=== PATIENT | male | born 1975 | race Caucasian/White ===

== ENCOUNTER 2020-08-19 10:41 | Emergency (ER) | payer BC ==
[~2020-08-19] VITALS: Ht 175.3 cm; Wt 77.4 kg
[2020-08-19 11:43] LABS: BASOPHILS % (AUTO) 0.3 % (0-1); EOSINOPHILS % (AUTO) 0.5 % (0-6); HEMATOCRIT 46.6 % (42.0-52.0); HEMOGLOBIN 15.7 g/dl (14.0-17.9); LYMPHOCYTES # (AUTO) 1.1 X10'3 (1.1-4.8); LYMPHOCYTES % (AUTO) 19.7 % (21-51); MEAN CORPUSCULAR HEMOGLOBIN 31.5 PG (27.0-31.0); MEAN CORPUSCULAR HGB CONC 33.8 g/dL (33.0-36.5); MEAN CORPUSCULAR VOLUME 93.4 FL (78-98); MEAN PLATELET VOLUME 6.8 FL (7.4-10.4); MONOCYTES # (AUTO) 0.5 X10'3 (0-0.9); MONOCYTES % (AUTO) 9.6 % (2-12); NEUTROPHILS # (AUTO) 3.9 X10'3 (1.8-7.7); NEUTROPHILS % (AUTO) 69.9 % (42-75); PLATELET COUNT 250 X10'3 (140-440); RED BLOOD COUNT 4.99 X10'6 (4.70-6.10); WHITE BLOOD COUNT 5.6 X10'3 (4.5-11.0)
[2020-08-19 11:55] LABS: PARTIAL THROMBOPLASTIN TIME 26 SECONDS (22-32)
[2020-08-19 11:58] LABS: ALANINE AMINOTRANSFERASE 47 U/L (12-78); ALBUMIN/GLOBULIN RATIO 1.1 (1.1-1.5); ALKALINE PHOSPHATASE 77 IU/L (46-116); ANION GAP 10 (8-16); ASPARTATE AMINO TRANSFERASE 24 U/L (10-37); BILIRUBIN,TOTAL 0.3 MG/DL (0.1-1.0); BLOOD UREA NITROGEN 15 MG/DL (7-18); BUN/CREATININE RATIO 11.8 (5.4-32.0); CALCIUM 9.4 MG/DL (8.5-10.1); CHLORIDE 105 MMOL/L (99-107); CREATININE 1.27 MG/DL (0.60-1.10); GLUCOSE 105 MG/DL (70-104); POTASSIUM 4.2 MMOL/L (3.5-5.1); SODIUM 143 MMOL/L (135-145); TOTAL CARBON DIOXIDE 28.5 MMOL/L (24-32); TOTAL PROTEIN 7.8 G/DL (6.4-8.2); eGFR 61 ML/MIN
[2020-08-19 12:02] LABS: TROPONIN I < 0.04 NG/ML (0.0-0.05)
--- NOTE | 2020-08-19 12:47 | NUR ---
PT WAITING FOR TELE NEURO CONSULT.
[2020-08-19] MEDS ORDERED: iohexol 350MG/ML 100ml bottle IV ONE (13:13)
[2020-08-19] MEDS ORDERED: ketorolac tromethamine 15mg/ml inj. IV ONE ×3 (14:05→14:25)
[2020-08-19] MEDS ORDERED: ondansetron/PF 4mg/2ml inj IV ONE (14:05)
[2020-08-19] MEDS ORDERED: meclizine 12.5mg tablet PO ONE (14:20)
[2020-08-19 14:25] LABS: URINE AMPHETAMINE SCREEN NEGATIVE (Neg); URINE BARBITUATE SCREEN NEGATIVE (Neg); URINE BENZODIAZEPINES SCREEN NEGATIVE (Neg); URINE CANNABINOID SCREEN NEGATIVE (Neg); URINE COCAINE SCREEN NEGATIVE (Neg); URINE METHADONE SCREEN NEGATIVE (Neg); URINE OPIATE SCREEN NEGATIVE (Neg); URINE PHENCYCLIDINE SCREEN NEGATIVE (Neg)
[2020-08-19] MEDS ORDERED: diphenhydrAMINE 50 mg/ml inj IV ONE ×2 (14:25)
[2020-08-19] MEDS ORDERED: ONDA4TAB6 PO (14:26)
[2020-08-19] MEDS ORDERED: MECL-184 PO (14:26)
[2020-08-19 14:28] LABS: CLARITY,URINE SLIGHTLY CLOUDY (Clear); COLOR,URINE STRAW (Yellow); GLUCOSE, URINE NEGATIVE (Neg); KETONES,URINE NEGATIVE (Neg); LEUKOCYTE ESTERASE ,URINE NEGATIVE (Neg); NITRITES, URINE NEGATIVE (Neg); OCCULT BLOOD,URINE NEGATIVE (Neg); PROTEIN,URINE NEGATIVE (Neg); UROBILINOGEN,URINE 0.2 E.U/dL (0.2-1.0)
[2020-08-19 14:29] LABS: UA COLLECTION TYPE CLN CATCH MIDSTREAM
[2020-08-19 14:37] LABS: MUCUS STRANDS MODERATE /LPF (Neg); SQUAMOUS EPITHELIAL CELL,UR FEW /LPF (FEW)
[2020-08-19 14:38] LABS: BACTERIA,URINE NONE SEEN /HPF (Neg); RBC,URINE 0-2 /HPF (0-2); WBC,URINE 0-4 /HPF (0-4)
[2020-08-19 15:45] VITALS: BP 124/84
== END 2020-08-19 15:47 | disposition home or self-care (01) ==
LOC: ER 10:43
DX: G43.109 Migraine with aura, not intractable, without status migrainosus (principal); I10 Essential (primary) hypertension; Z88.0 Allergy status to penicillin; Z88.6 Allergy status to analgesic agent; Z79.899 Other long term (current) drug therapy
CPT/HCPCS: 36415; 70450; 70496; 70498; 71045; 80053; 80305; 81001; 84484; 85025; 85610; 85730; 93005; 96374; 96375; 99285; J1200; J1885; J2405; J8597; Q9967

== ENCOUNTER 2023-01-21 08:48 | Emergency (ER) | payer BC ==
[~2023-01-21] VITALS: Ht 175.3 cm; Wt 76.8 kg
[~2023-01-21 08:48] MED LIST: MECL-231 PO; ONDA4TAB6 PO
[2023-01-21 09:13] LABS: ALANINE AMINOTRANSFERASE 42 U/L (12-78); ALBUMIN 3.8 G/DL (3.4-5.0); ALBUMIN/GLOBULIN RATIO 1.1 (1.1-1.5); ALKALINE PHOSPHATASE 78 IU/L (46-116); ANION GAP 6 (8-16); ASPARTATE AMINO TRANSFERASE 25 U/L (10-37); BILIRUBIN,TOTAL 0.4 MG/DL (0.1-1.0); BLOOD UREA NITROGEN 17 MG/DL (7-18); BUN/CREATININE RATIO 12.1 (10.0-20.0); CALCIUM 9.2 MG/DL (8.5-10.1); CHLORIDE 104 MMOL/L (99-107); CREATININE 1.41 MG/DL (0.60-1.10); GLUCOSE 119 MG/DL (70-104); POTASSIUM 4.1 MMOL/L (3.5-5.1); SODIUM 141 MMOL/L (135-145); TOTAL CARBON DIOXIDE 30.7 MMOL/L (24-32); TOTAL PROTEIN 7.4 G/DL (6.4-8.2); eGFR 53 ML/MIN
[2023-01-21 09:23] LABS: EOSINOPHILS # (AUTO) 0.1 X10'3 (0-0.9); HEMOGLOBIN 15.8 g/dl (14.0-17.9); MONOCYTES # (AUTO) 0.5 X10'3 (0-0.9)
[2023-01-21 09:25] LABS: BASOPHILS % (AUTO) 0.4 % (0-1); EOSINOPHILS % (AUTO) 1.5 % (0-6); HEMATOCRIT 47.4 % (42.0-52.0); LYMPHOCYTES # (AUTO) 1.7 X10'3 (1.1-4.8); LYMPHOCYTES % (AUTO) 34.8 % (21-51); MEAN CORPUSCULAR HEMOGLOBIN 30.7 PG (27.0-31.0); MEAN CORPUSCULAR HGB CONC 33.4 g/dL (33.0-36.5); MEAN CORPUSCULAR VOLUME 91.9 FL (78-98); MONOCYTES % (AUTO) 9.4 % (2-12); NEUTROPHILS # (AUTO) 2.6 X10'3 (1.8-7.7); NEUTROPHILS % (AUTO) 53.9 % (42-75); PLATELET COUNT 260 X10'3 (140-440); RED BLOOD COUNT 5.16 X10'6 (4.70-6.10); RED CELL DISTRIBUTION WIDTH 14.8 % (11.5-14.5); WHITE BLOOD COUNT 4.9 X10'3 (4.5-11.0)
[2023-01-21] MEDS ORDERED: ondansetron 4mg rapidly disintigrating tab PO ONE (09:55)
[2023-01-21] MEDS ORDERED: normal saline 1000ML IV soln IVB ONE (10:45)
[2023-01-21 11:52] VITALS: BP 112/73
== END 2023-01-21 11:54 | disposition home or self-care (01) ==
LOC: ER 08:48
DX: R07.89 Other chest pain (principal); Z20.822 Contact with and (suspected) exposure to COVID-19; R06.02 Shortness of breath; R42 Dizziness and giddiness; I10 Essential (primary) hypertension; Z88.0 Allergy status to penicillin; Z88.5 Allergy status to narcotic agent
CPT/HCPCS: 36415; 71045; 80053; 83880; 84484; 85025; 87811; 93005; 96360; 99285; J7030

== ENCOUNTER 2024-03-25 08:06 | Emergency (ER) | payer BC, OTHER ==
[~2024-03-25] VITALS: Ht 175.3 cm; Wt 80.3 kg
[2024-03-25 09:02] LABS: BASOPHILS % (AUTO) 0.2 % (0-1); EOSINOPHILS # (AUTO) 0.1 X10'3 (0-0.9); EOSINOPHILS % (AUTO) 0.9 % (0-6); HEMATOCRIT 49.3 % (42.0-52.0); HEMOGLOBIN 16.3 g/dl (14.0-17.9); LYMPHOCYTES % (AUTO) 33.5 % (21-51); MEAN CORPUSCULAR HEMOGLOBIN 29.5 PG (27.0-31.0); MEAN CORPUSCULAR HGB CONC 33.1 g/dL (33.0-36.5); MEAN PLATELET VOLUME 6.9 FL (7.4-10.4); MONOCYTES # (AUTO) 0.4 X10'3 (0-0.9); MONOCYTES % (AUTO) 7.2 % (2-12); NEUTROPHILS # (AUTO) 3.5 X10'3 (1.8-7.7); NEUTROPHILS % (AUTO) 58.2 % (42-75); PLATELET COUNT 231 X10'3 (140-440); RED BLOOD COUNT 5.54 X10'6 (4.70-6.10); RED CELL DISTRIBUTION WIDTH 14.3 % (11.5-14.5)
[2024-03-25 09:05] VITALS: TEMP 98.8
[2024-03-25 09:24] LABS: ALBUMIN 3.8 G/DL (3.4-5.0); ANION GAP 8 (8-16); BLOOD UREA NITROGEN 15 MG/DL (7-18); BUN/CREATININE RATIO 11.7 (10.0-20.0); CALCIUM 9.4 MG/DL (8.5-10.1); CHLORIDE 104 MMOL/L (99-107); CREATININE 1.28 MG/DL (0.60-1.10); GLUCOSE 128 MG/DL (70-104); POTASSIUM 3.6 MMOL/L (3.5-5.1); PRO BRAIN NATRIURETIC PEPTIDE < 30 PG/ML (0-125); SODIUM 142 MMOL/L (135-145); TOTAL CARBON DIOXIDE 30.2 MMOL/L (24-32); eCRCL 68 ML/MIN; eGFR 59 ML/MIN
[2024-03-25] MEDS ORDERED: pantoprazole 40 MG vial IV SCH (09:30)
[2024-03-25] MEDS: pantoprazole 40 MG vial IV ONE (09:53)
[2024-03-25] MEDS: dexamethasone 4mg tablet PO ONE (11:26)
[2024-03-25] MEDS: ketorolac trometh 30MG/ML vial 30 MG/ML VIAL IV ONE (11:27)
[2024-03-25 11:45] VITALS: BP 132/85; PULSE 66; RESP 16; O2SAT 95
== END 2024-03-25 11:47 | disposition home or self-care (01) ==
LOC: ER 08:06
DX: M54.9 Dorsalgia, unspecified (principal); I10 Essential (primary) hypertension; M54.2 Cervicalgia; Z88.0 Allergy status to penicillin; Z88.8 Allergy status to other drugs, medicaments and biological substances; Z79.899 Other long term (current) drug therapy; Z98.890 Other specified postprocedural states; Z20.822 Contact with and (suspected) exposure to COVID-19
CPT/HCPCS: 36415; 71045; 72125; 80048; 83880; 84484; 85025; 87811; 93005; 96374; 96375; 99285; J1885; J2470

== ENCOUNTER 2024-09-07 14:55 | Emergency (ER) | payer MEDICAID ==
[~2024-09-07] VITALS: Ht 175.3 cm; Wt 73.4 kg
[~2024-09-07 14:55] MED LIST changes: +RIME75TA PO
[2024-09-07] MEDS: ketorolac trometh 15mg/ml vial 15 MG/ML ML IM ONE (19:17)
[2024-09-07] MEDS: OLANZapine **IM** 10 mg inj. IM ONE (22:36)
[2024-09-07] MEDS: dexamethasone sod phosphate 10mg/ml inj PO STA (22:36)
[2024-09-07] MEDS: normal saline 1000ML IV soln IVB ONE (22:37)
[2024-09-07 22:42] VITALS: BP 134/82; PULSE 63; RESP 18; O2SAT 94
[2024-09-07] MEDS ORDERED: RIBO400T PO (23:04)
[2024-09-07] MEDS ORDERED: MAGN100T PO (23:04)
[2024-09-07 23:21] VITALS: TEMP 97.5
[2024-09-07] MEDS: magnesium oxide 400mg tablet PO ONE (23:28)
== END 2024-09-07 23:28 | disposition home or self-care (01) ==
LOC: ER 14:56
DX: G43.909 Migraine, unspecified, not intractable, without status migrainosus (principal); Z88.5 Allergy status to narcotic agent; Z88.0 Allergy status to penicillin; Z79.899 Other long term (current) drug therapy
CPT/HCPCS: 70551; 82948; 96372; 99285; J1100; J1885; J3490